=== PATIENT | female | born 1945 | race Caucasian/White ===

== ENCOUNTER 2021-06-20 18:48 | Outpatient (REF) | payer OTHER, SELFPAY ==
[2021-06-22 15:02] LABS: COVID-19 RT-PCR UVMMC Result Negative (Negative)
== END 2021-06-20 18:49 | disposition home or self-care (01) ==
LOC: LBN 18:48
PROVIDERS: PCP Student in an Organized Health Care Education/Training Program; Visit Provider Nurse Practitioner Family
DX: Z20.822 Contact with and (suspected) exposure to COVID-19 (principal); R05.8 Other specified cough
CPT/HCPCS: U0003

== ENCOUNTER 2021-11-03 13:39 | Outpatient (REF) | payer OTHER, SELFPAY ==
[2021-11-04 13:57] LABS: COVID-19 RT-PCR UVMMC Result Negative (Negative)
== END 2021-11-03 13:40 | disposition home or self-care (01) ==
LOC: NCHCN 13:39
PROVIDERS: PCP Student in an Organized Health Care Education/Training Program; Visit Provider Physician Assistant
DX: Z20.822 Contact with and (suspected) exposure to COVID-19 (principal)
CPT/HCPCS: U0003

== ENCOUNTER 2025-07-20 15:02 | Emergency (ER) | payer MEDICARE, OTHER, SELFPAY ==
[2025-07-20 15:05] VITALS: BP 166/74; PULSE 54; RESP 17; TEMP 36.4; O2SAT 96
--- NOTE | 2025-07-20 15:15 | DI.CT_ITS ---
Exam(s) CT HEAD CERVICAL SPINE WO EXAM: CT HEAD CERVICAL SPINE WO CLINICAL HISTORY: trauma. TECHNIQUE: Imaging Protocol: Axial computed tomography images with coronal and sagittal reformatted images were created and reviewed COMPARISON: No exams were available for comparison FINDINGS: BRAIN: There are no skull fractures nor fluid in the visualized paranasal sinuses. There is no evidence of intracranial hemorrhage, mass effect, or shift of midline structures. There are no extra-axial fluid collections. The ventricles are not enlarged or shifted and there is no blood within the ventricular system nor within the basal cisterns. CERVICAL SPINE: There is no evidence of fracture nor listhesis. No significant prevertebral soft tissue swelling. There is chronic disc space narrowing at multiple levels. No listhesis. There is multilevel mild-moderate facet arthropathy. There is no significant facet joint malalignment. No significant osseous lesions evident. IMPRESSION: No acute intracranial findings on this noninfused CT scan of the brain. Multilevel degenerative changes but no evidence of cervical spine fracture, malalignment, nor acute compromise of the cervical spinal canal. Report called by myself to ER provider 07/20/2025 at 4:45 p.m. RADIATION DOSE DELIVERED: 1,122.35mGy.cm Total DLP DATA REPOSITORY: All CT scans at this facility are submitted to the National Radiology Data Registry (NRDR) Dose Index Registry (DIR) with the [employer] (ACR). RADIATION OPTIMIZATION: All CT scans at this facility use at least one of these dose optimization techniques: automated exposure control; mA and/or kV adjustment per patient size (includes targeted exams where dose is matched to clinical indication); or iterative reconstruction.
--- NOTE | 2025-07-20 16:49 | ED.GENADUL_ITS ---
Discharge Plan Disposition Patient Disposition: Home Discharge Details Clinical Impression: Fall, Laceration of face, Abrasion of face Primary Care Provider: Davey Posada ED Provider: Holden Henry Home Meds and New Rx's Prescriptions: No Action pravastatin 10 mg tablet 10 mg PO DAILY tretinoin 45 GM cream 1 applic topical DIRECTED levothyroxine 125 MCG tablet 0.5 tab PO DAILY levothyroxine [Synthroid] 88 mcg tablet 88 mcg PO DAILY Patient Comments: Pt takes 6 days/week 07/20/25 Discharge Instructions Instructions: Abrasions ED, Laceration Repair With Stitches ED, Wound Care ED Additional Instructions: You received 2 absorbable sutures in the laceration of your upper lip. These will be observed by your body over time and do not require removal. Please continue to monitor your injuries for signs of infection including worsening pain, swelling, rash, discharge or associated fever or chills. Please follow-up with your primary care provider regarding your visit to the emergency department today. Be sure to discuss results of all test performed here today to include radiology, and laboratory testing as well as results for any pending cultures. Should your symptoms worsen, or if you develop new concerning symptoms, please return immediately emergency department for further evaluation. Stand Alone Forms: Portal Information Discharge Data Discharge Date/Time-TO BE ENTERED AT DEPARTURE: 07/20/25 17:52 HPI General Date/Time Provider Initiated Documentation: 07/20/25 15:03 . HPI Narrative: MDM/Narrative: 79-year-old female presents for evaluation of injury sustained when she tripped and fell prior to arrival. Primary survey intact, secondary notable for multiple abrasions to the forehead and face and a small laceration to the left aspect of the upper lip that does not cross the vermilion border. Given patient's advanced age will obtain CT imaging to rule out intracranial C-spine pathology, chart review shows that patient is Tdap was updated earlier this year. ED course: CT imaging was unremarkable. Patient's wounds were cleansed. Lip laceration was sewn shut with absorbable sutures. Will discharge to follow-up primary care. Disposition: Home HPI: 79-year-old female presents for evaluation after tripping and falling face first while attempting to enter the local post office. Denies any loss of consciousness notes multiple wounds to her face denies any other significant pain or injury. ROS: Negative besides as mentioned above Exam: Gen: A&O NAD HEENT: EOMI, not icteric. External ears normal. No rhinorrhea. Moist mucous membranes. Large abrasion to the right forehead. There is a approximately 1.5 cm laceration to the left aspect of the upper lip that does not cross milium border and is not through and through. No dental laxity or intraoral injury. No septal hematoma Neck: Supple, full range of motion, no observable masses, No meningeal sign. Lungs: No Respiratory distress. CV: RRR, no edema. Abdomen: Soft, nondistended, No rebound tenderness. MSK: No joint swelling, no redness. Skin: No rashes, petechiae, lesions. Normal color per patient. Neuro: Normal Gait, Grossly intact. Psych: Appropriate for situation. Radiology: Accession No. : [id number] Creator : Rip Gillis Dictator : Rip Gillis Assistant Director Of Financial Aid : Plisse Machine Operator Helper : Rip Gillis Approver2 : Report Date : 07/20/2025 16:47:11 Exam(s) CT HEAD CERVICAL SPINE WO EXAM: CT HEAD CERVICAL SPINE WO CLINICAL HISTORY: trauma. TECHNIQUE: Imaging Protocol: Axial computed tomography images with coronal and sagittal reformatted images were created and reviewed COMPARISON: No exams were available for comparison FINDINGS: BRAIN: There are no skull fractures nor fluid in the visualized paranasal sinuses. There is no evidence of intracranial hemorrhage, mass effect, or shift of midline structures. There are no extra-axial fluid collections. The ventricles are not enlarged or shifted and there is no blood within the ventricular system nor within the basal cisterns. CERVICAL SPINE: There is no evidence of fracture nor listhesis. No significant prevertebral soft tissue swelling. There is chronic disc space narrowing at multiple levels. No listhesis. There is multilevel mild-moderate facet arthropathy. There is no significant facet joint malalignment. No significant osseous lesions evident. IMPRESSION: No acute intracranial findings on this noninfused CT scan of the brain. Multilevel degenerative changes but no evidence of cervical spine fracture, malalignment, nor acute compromise of the cervical spinal canal. Report called by myself to ER provider 07/20/2025 at 4:45 p.m. RADIATION DOSE DELIVERED: 1,122.35mGy.cm Total DLP DATA REPOSITORY: All CT scans at this facility are submitted to the National Radiology Data Registry (NRDR) Dose Index Registry (DIR) with the [employer] (ACR). RADIATION OPTIMIZATION: All CT scans at this facility use at least one of these dose optimization techniques: automated exposure control; mA and/or kV adjustment per patient size (includes targeted exams where dose is matched to clinical indication); or iterative reconstruction. Related Data Home Medications ?Medication ?Instructions ?Recorded ?Confirmed levothyroxine 125 mcg tablet 0.5 tab PO DAILY 12/17/15 07/20/25 tretinoin 0.05 % topical cream 1 applic topical DIR ECTED 12/17/15 07/20/25 pravastatin 10 mg tablet 10 mg PO DAILY 04/13/2407/09 levothyroxine 88 mcg tablet 88 mcg PO DAILY 07/20/25 1 09/20/24 (Synthroid) Allergies Allergy/AdvReac Type Severity Reaction Status Date / Time No Known Allergies Allergy Unverified 07/20/25 15:10 General Stated Complaint: Fall/Non TraumaCriteria EPIFANIO: 3 Course Vital Signs Vital signs: Vital Signs Temperature 36.4 C 07/20/25 15:05 Pulse 54 L 07/20/25 15:05 Respiratory Rate 17 07/20/25 15:05 Blood Pressure 166/74 H 07/20/25 15:05 Pulse Oximetry 96 07/20/25 15:05 Temperature 36.4 C 07/20/25 15:05 Temperature Source Oral 07/20/25 15:05 Pulse 54 L 07/20/25 15:05 Respiratory Rate 17 07/20/25 15:05 Blood Pressure 166/74 H 07/20/25 15:05 Blood Pressure Position Sitting 07/20/25 15:05 Pulse Oximetry 96 07/20/25 15:05 Oxygen Delivery Method Room Air 07/20/25 15:05 Oxygen Flow Rate 0 07/20/25 15:05 Pain Level 5 07/20/25 15:05 Procedure Laceration Laceration 1: Date of Procedure: 07/20/25 Time of procedure: 22:56 Patient Consented: Verbally Site: face Depth: simple, single layer Local anesthetic: Lidocaine 1% Amount of anesthesia used (mL): 2.5 Skin layer closed with: chromic gut Suture size: 5-0 Number of sutures:: 2 Complications: None PFSH All Active Problems (Updated 07/20/25 @ 17:23 by Holden Henry MD) Abrasion of face (Acute) Laceration of face (Acute) Fall (Acute) Social History Smoking/Tobacco Use Status: Never Smoking risk assessment performed?: Yes Alcohol Intake: current Alcohol Intake frequency: a few times a week Alcohol type: wine Drug use: Never Substance use type: does not use
[2025-07-20] MEDS: Lidocaine 2% Pres-Free W/EPI 1/200,000 20 ML VIAL (17:22)
[2025-07-20 17:51] VITALS: BP 153/67; PULSE 61; RESP 18; O2SAT 98
== END 2025-07-20 17:52 | disposition home or self-care (01) ==
PROVIDERS: Emergency Provider General Practice; PCP Internal Medicine
DX: S01.81XA Laceration without foreign body of other part of head, initial encounter (principal); Y92.242 Post office as the place of occurrence of the external cause; W01.0XXA Fall on same level from slipping, tripping and stumbling without subsequent striking against object, initial encounter
CPT/HCPCS: 99283; 99284; 12011; 70450; 72125; J2004